=== PATIENT | female | born 1995 ===

== ENCOUNTER 2022-09-15 00:12 | Inpatient (IN) ==
[2022-09-15] MEDS ORDERED: OXYTOCIN 30 UNITS/500 ML BAG IV PRN ×2 (05:00→09:19)
[2022-09-15] MEDS ORDERED: LIDOCAINE 1% LOCAL 20 ML VIAL INFIL PRN (05:00)
[2022-09-15] MEDS: LACTATED RINGER'S 1,000 ML IV PRN ×2 (05:00→06:04)
[2022-09-15] MEDS ORDERED: fentaNYL 2MCG/ML ROPIVACAINE 1.25MG/ML 100 ML BAG EPI PRN (05:08)
[2022-09-15] MEDS ORDERED: NALBUPHINE HCL INJ 10 MG/ML AMP IV PRN (05:08)
[2022-09-15] MEDS ORDERED: NALOXONE HCL 0.4 MG/1 ML VIAL/CARP IV PRN (05:08)
[2022-09-15] MEDS ORDERED: NALOXONE HCL 1 MG in SODIUM CHLORIDE 0.9% 1000ML 1,000 ML IV PRN (05:08)
[2022-09-15] MEDS ORDERED: ONDANSETRON INJ 2 MG/ML 2 ML VIAL IV PRN (05:08)
[2022-09-15] MEDS ORDERED: diphenhydrAMINE 50 MG/ML VIAL IV PRN (05:08)
[2022-09-15] MEDS ORDERED: ePHEDrine sulfate 50 MG/ML AMP IV PRN (05:08)
[2022-09-15 05:30] LABS: Hematocrit (blood only) 37.4 % (37.0-47.0); Hemoglobin 12.8 g/dl (12.0-16.0); Mean Corpuscular Hemoglobin 31.8 pg (25.0-34.0); Mean Corpuscular Hgb Conc 34.2 g/dL (32.0-36.0); Mean Corpuscular Volume 92.8 fL (80.0-100.0); Mean Platelet Volume 12.1 fL (9.4-12.4); Platelet Count 153 K/uL (130-400); RDW Coefficient of Variation 14.5 % (11.5-14.5); RDW Standard Deviation 49.5 fL (36.4-46.3); Red Blood Count 4.03 M/uL (4.20-5.40); White Blood Count 7.75 K/ul (4.8-10.8)
[2022-09-15] MEDS ORDERED: Patient's ALLERGY Info needs ENTERED SCH (05:30)
--- NOTE | 2022-09-15 05:35 | History & Physical Report ---
Date of Service September 15, 2022 History of Present Illness Chief Complaint: onset of labor Primary Care Provider: NO PCP 26 F P1001 at 38.6 weeks admitted in early labor. GBS is negative. 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 History neg Review of Systems All systems reviewed & are unremarkable except as noted in HPI & below Physical Exam Constitutional: WD/WN, vitals as above Eyes: PERRL, conjunctivae normal, anicteric sclerae Respiratory: normal respiratory effort, lungs clear to auscultation Cardiovascular: RRR, no murmur, no edema Gastrointestinal (Abdomen): Inspection/Auscultation: abdomen normal to inspection Musculoskeletal: Extremities: extremities normal to inspection Skin: no rashes, warm and dry Neurologic: patellar DTR's 2+ bilat, sensation intact Psychiatric: A+Ox3, euthymic affect Genitourinary: Manual OB Exam: + cervical dilation 5 cm, + cervical effacement 70% and 80% and + station -1 OB Exam Monitor Tracing: + external FHT monitor used, + external uterine monitor used, + category I and + normal FHT variability Results & Data Vital Signs (Past 12 Hours) Vital Signs Temp Pulse Resp BP Pulse Ox 09/15/22 05:29 81 100 09/15/22 02:44 78 137/88 09/15/22 00:52 36.9 C 18 09/15/22 00:28 36.9 C 87 18 140/88 Laboratory Results Laboratory Results - last 72 hr 09/15/22 09/15/22 05:24 Unknown WBC 7.75 RBC 4.03 L Hgb 12.8 Hct 37.4 MCV 92.8 MCH 31.8 MCHC 34.2 RDW Std Deviation 49.5 H RDW Coeff of Claudette 14.5 Plt Count 153 MPV 12.1 SARS-CoV-2, RNA, NAAT NEGATIVE Code Status & VTE Plan VTE Prophylaxis Plan VTE Prophylaxis will be ordered: No Monitoring External Monitor Cat 1
--- NOTE | 2022-09-15 06:15 | Anesthesiology Consultation ---
Date of Service September 15, 2022 Assessment & Plan ASA ASA2 Proposed Anesthesia Anesthesia Type: Labor Epidural Risk / Benefits Reviewed With: PT / POA / Parent / Guardian, Accepts Plan and Informed Consent Obtained History Height/Weight Height: 5 ft 5 in Weight: 66.224 kg Allergies Allergy/AdvReac Type Severity Reaction Status Date / Time No Known Allergies Allergy Unverified 09/15/22 05:36 Medications Home Medications Medication Instructions Recorded Confirmed Last Taken Iron (ferrous sulfate) See Rx Instructions .Route .COMPLEX 09/15/22 09/15/22 1 Day Ago ~09/14/22 See Rx Instructions .Route .COMPLEX 09/15/22 09/15/22 1 Day Ago ~09/14/22 Active Medications Generic Name Dose Route Start Last Admin Trade Name Freq PRN Reason Stop Dose Admin Lactated Ringer's 1,000 mls @ 125 mls/hr 09/15/22 05:00 09/15/22 06:04 Lr IV 09/17/22 04:59 999 mls/hr .Q8H PRN Administration L&D Protocol Protocol Ropivacaine 100 ml 09/15/22 05:08 09/15/22 06:04 Fentanyl 2mcg/Ml Ropivacaine 1.25mg/Ml 100 Ml Bag EPI 09/16/22 05:07 100 ml PRN PRN Administration Pain R/T Labor Protocol Exercise / Class Metabolic Activity II 4-5 Yardwork/Stairs/Walk up hill Past Anesthesia History No Hx of Anesthesia Complications and No Family Hx of Anesthesia Complications History of PONV No Hx of PONV and No Hx of Motion Sickness Social History Smoking Status: Never smoker Do You Dip or Chew Tobacco: No Hx Alcohol Use: No Hx Substance Use: No substance use type: does not use Review of Systems denies fever/cough/ colds/ chest pain/ SOB/ HILARIO denies HILARIO Physical Exam Vital Signs Last Vital Signs Temp 36.9 C 09/15/22 00:52 Pulse 83 09/15/22 06:13 Resp 18 09/15/22 00:52 BP 124/69 09/15/22 06:13 Pulse Ox 94 09/15/22 06:11 ENMT Mouth: no TMJ abnormality and no dentition abnormality Thyromental Distance: > or= 3.5 Finger Breadths Mallampati Class: II Neck neck extension not limited Respiratory normal respiratory effort; no respiratory distress Auscultation: lungs clear to auscultation bilaterally Cardiovascular Rate/Rhythm: regular rate and regular rhythm Neurologic moves all extremities Psychiatric Orientation: alert and oriented x 3 Testing Laboratory Results 09/15/22 05:24
[2022-09-15] MEDS ORDERED: fentaNYL citrate PF 100 MCG/2 ML VIAL ONE ×2 (06:25→06:26)
--- NOTE | 2022-09-15 08:24 | Obstetrical Progress Note ---
Date of Service September 15, 2022 Assessment & Plan Admission and Anticipated Discharge Date Admission Date: September 15, 2022 Subjective Patient is seen and examined Reviewed her history with her. Comfortable received epidural for pain VE; 7/ 90%/ 0, bulging bag, AROM'ed, clear fluid FHR categ I Continue to monitor Anticipate Results & Data Vital Signs (Past 12 Hours) Vital Signs Temp Pulse Resp BP Pulse Ox 09/15/22 07:00 36.7 C 18 09/15/22 08:20 111 H 95 09/15/22 08:16 96 H 125/89 09/15/22 08:15 99 H 94 09/15/22 08:10 84 95 09/15/22 08:05 89 94 09/15/22 08:03 90 132/70 09/15/22 08:00 100 H 16 94 09/15/22 07:55 100 H 95 09/15/22 07:50 76 94 09/15/22 07:45 74 123/70 95 09/15/22 07:40 70 94 09/15/22 07:35 81 94 09/15/22 07:30 90 18 95 09/15/22 07:31 82 117/65 09/15/22 07:25 74 94 09/15/22 07:20 88 94 09/15/22 07:15 77 94 09/15/22 07:16 73 129/71 09/15/22 07:10 69 94 09/15/22 07:05 85 95 09/15/22 07:02 96 H 128/82 09/15/22 07:00 82 18 95 09/15/22 06:59 87 94 09/15/22 06:55 80 94 09/15/22 06:52 87 94 09/15/22 06:50 88 95 09/15/22 06:46 89 119/75 94 09/15/22 06:45 124 H 94 09/15/22 06:40 88 94 09/15/22 06:35 82 93 09/15/22 06:34 94 H 94 09/15/22 06:30 86 18 94 09/15/22 06:29 85 94 09/15/22 06:28 97 H 117/66 09/15/22 06:25 92 H 119/62 95 09/15/22 06:23 89 122/68 09/15/22 06:22 88 94 03/30/23 06:20 101 H 95 09/15/22 06:19 109 H 128/69 09/15/22 06:16 93 H 127/68 94 09/15/22 06:15 83 94 09/15/22 06:13 83 124/69 09/15/22 06:11 95 H 94 09/15/22 06:10 109 H 122/63 95 09/15/22 06:07 89 124/69 09/15/22 06:05 92 H 96 09/15/22 06:06 93 H 125/69 09/15/22 06:04 93 H 115/61 09/15/22 06:01 90 129/69 09/15/22 06:00 100 H 99 09/15/22 05:55 99 H 99 09/15/22 05:50 91 H 100 09/15/22 05:45 87 100 09/15/22 05:44 96 H 91 09/15/22 05:40 92 H 100 09/15/22 05:34 83 100 09/15/22 05:29 81 100 09/15/22 02:44 78 137/88 09/15/22 00:52 36.9 C 18 09/15/22 00:28 36.9 C 87 18 140/88
[2022-09-15] MEDS ORDERED: bisacodyL 10 MG SUPP PR PRN (09:19)
[2022-09-15] MEDS ORDERED: HYDROCORTISONE ACETATE 25 MG SUPP PR PRN (09:19)
[2022-09-15] MEDS ORDERED: ACETAMINOPHEN 325 MG TAB PO PRN (09:19)
[2022-09-15] MEDS ORDERED: DIPHTHERIA/TETANUS/PERTUSSIS 0.5mL SYR/VIAL (Age 7+yrs) IM ONE (09:19)
[2022-09-15] MEDS ORDERED: BENZOCAINE 20% AER SPR 82.5 GM CAN EXT PRN (09:19)
[2022-09-15] MEDS ORDERED: MEASLES, MUMPS & RUBELLA VIRUS VIAL SQ ONE (09:19)
--- NOTE | 2022-09-15 09:24 | Delivery Summary ---
Vaginal Delivery Summary Date of Service September 15, 2022 Vaginal Delivery Summary Patient was found to be fluid dilated and desired to push. She pushed through 3 contractions and delivered the head without focality. The shoulders were delivered with minimal traction and the baby was handed off to the mother. The mouth and nose were suctioned, cord was clamped times and cut at 1 minute delay. The baby is vigorously moving and crying at that point. Then the placenta was found to be in the vagina, delivered spontaneously as intact and complete. Uterus was explored and found to be empty, lower segment was cleared of all clots and debris's, fundus was firm and EBL was 100 mL. Then the vagina and perineum were checked for lacerations. There was a very superficial first-degree small laceration at posterior fourchette skin. It was repaired with 2-0 Vicryl with [id number] stitch x2. And it was hemostatic. Rest of the vagina and labia were intact. The mom and the baby tolerated the procedure well. Baby was a viable male , Apgars 8/9 and his weight is pending. No complications happened and I was present during whole procedure. At the end of the procedure the sponge needle instrument count was correct x2.
--- NOTE | 2022-09-15 13:03 | Anesthesia Procedure Note ---
Date of Service September 15, 2022 Anesthesia Epidural Re-Dose Vital Signs Temp Pulse Resp BP Pulse Ox 36.7 C 72 18 117/70 94 09/15/22 11:15 09/15/22 11:15 09/15/22 11:15 09/15/22 11:15 09/15/22 09:15 Notes Pain Intensity: 0 Dilatation (cm): 10.0 Effacement (%): 100
[2022-09-15] MEDS: IBUPROFEN 600 MG TAB PO PRN ×2 (16:26→22:02)
[2022-09-15] MEDS: DOCUSATE SODIUM 100 MG CAP PO SCH (21:30)
[2022-09-16 07:35] LABS: Hematocrit (blood only) 35.8 % (37.0-47.0); Hemoglobin 12.2 g/dl (12.0-16.0); Mean Corpuscular Hemoglobin 31.2 pg (25.0-34.0); Mean Corpuscular Hgb Conc 34.1 g/dL (32.0-36.0); Mean Corpuscular Volume 91.6 fL (80.0-100.0); Platelet Count 137 K/uL (130-400); RDW Coefficient of Variation 14.7 % (11.5-14.5); RDW Standard Deviation 50.1 fL (36.4-46.3); Red Blood Count 3.91 M/uL (4.20-5.40); White Blood Count 9.95 K/ul (4.8-10.8)
[2022-09-16] MEDS: IBUPROFEN 600 MG TAB PO PRN ×3 (08:34→20:54)
[2022-09-16] MEDS: FERROUS SULFATE 325 MG TAB PO SCH (08:34)
[2022-09-16] MEDS: PRENATAL VITAMIN 1 TAB PO SCH (08:35)
[2022-09-16] MEDS: DOCUSATE SODIUM 100 MG CAP PO SCH (08:36)
[2022-09-16] MEDS: DOCUSATE SODIUM SYRUP 100 MG/10 ML UDC PO SCH ×2 (09:21→20:55)
--- NOTE | 2022-09-16 10:26 | History & Physical Report ---
Date of Service September 16, 2022 Assessment & Plan Admission and Anticipated Discharge Date Admission Date: September 15, 2022 History of Present Illness Primary Care Provider: NO PCP Allergies Allergy/AdvReac Type Severity Reaction Status Date / Time Pork/Porcine Containing Allergy Unknown Verified 09/15/22 19:03 Products Home Medications Medication Instructions Recorded Confirmed Type Iron (ferrous sulfate) See Rx Instructions .Route .COMPLEX 09/15/22 09/15/22 History See Rx Instructions .Route .COMPLEX 09/15/22 09/15/22 History Patient History Social History Smoking Status: Never smoker Second Hand Exposure: No; Do You Dip or Chew Tobacco: No; Tobacco Cessation Education Requested by Patient: No Hx Alcohol Use: No Hx Substance Use: No Preferred Language: Other Communication Ability: Impaired Insurance Sales Manager Required: No Beliefs That Will Affect Care: None marital status: Current Living Situation: Spouse and Family Current Living Situation Comment: and son Other Information That Helps Us Care for You: No Feels Safe at Home: Yes Safety Concerns: Feels Safe At This Time Assistive Devices: None Results & Data Vital Signs (Past 12 Hours) Vital Signs Temp Pulse Pulse Resp BP Pulse Ox O2 Del Method 09/16/22 07:41 36.8 C 79 18 106/69 99 Room Air 09/15/22 23:25 36.7 C 73 18 112/72 97 Room Air Code Status & VTE Plan VTE Prophylaxis Plan VTE Prophylaxis will be ordered: No
--- NOTE | 2022-09-16 10:27 | Obstetrical Progress Note ---
Date of Service September 16, 2022 Subjective Ambulation: ambulating normally Voiding: no voiding problems Passing Gas:: Yes Diet Tolerance:: regular diet Lochia:: Small Feeding Type:: breast feeding Current Pain Level(1-10): 0 doing well Physical Exam Constitutional WD/WN, vitals as above Gastrointestinal (Abdomen) Inspection/Auscultation: abdomen normal to inspection Musculoskeletal Extremities: extremities normal to inspection Skin no rashes, warm and dry Neurologic patellar DTR's 2+ bilat, sensation intact Psychiatric A+Ox3, euthymic affect Results & Data Vital Signs (Past 12 Hours) Vital Signs Temp Pulse Pulse Resp BP Pulse Ox O2 Del Method 09/16/22 07:41 36.8 C 79 18 106/69 99 Room Air 09/15/22 23:25 36.7 C 73 18 112/72 97 Room Air Laboratory Results Laboratory Results - last 72 hr 09/15/22 09/15/22 09/16/22 05:24 Unknown 06:56 WBC 7.75 9.95 RBC 4.03 L 3.91 L Hgb 12.8 12.2 Hct 37.4 35.8 L MCV 92.8 91.6 MCH 31.8 31.2 MCHC 34.2 34.1 RDW Std Deviation 49.5 H 50.1 H RDW Coeff of Claudette 14.5 14.7 H Plt Count 153 137 MPV 12.1 12.0 SARS-CoV-2, RNA, NAAT NEGATIVE
[2022-09-16] MEDS ORDERED: bisacodyL 5 MG TABEC PO SCH (20:00)
[2022-09-17] MEDS: IBUPROFEN 600 MG TAB PO PRN (06:30)
[2022-09-17 06:53] LABS: Hematocrit (blood only) 35.9 % (37.0-47.0); Hemoglobin 12.3 g/dl (12.0-16.0)
[2022-09-17] MEDS: FERROUS SULFATE 325 MG TAB PO SCH (08:32)
[2022-09-17] MEDS: DOCUSATE SODIUM SYRUP 100 MG/10 ML UDC PO SCH (08:32)
[2022-09-17] MEDS: PRENATAL VITAMIN 1 TAB PO SCH (08:32)
--- NOTE | 2022-09-17 08:33 | Obstetrical Progress Note ---
Date of Service September 17, 2022 Assessment & Plan Admission and Anticipated Discharge Date Admission Date: September 15, 2022 Subjective Patient is seen and examined. She feels well, no complaints. Ambulating without dizziness Voiding without difficulty Tolerating regular diet with out N&V Bleeding is minimal No fever/ chills/ CP/ SOB/ N&V/ Leg pain Breast feeding without problems Vital Signs Temp Pulse Resp BP Pulse Ox O2 Del Method 09/16/22 23:25 Room Air 09/16/22 23:25 36.6 C 76 18 120/74 97 Room Air Lab Results 09/15/22 09/15/22 09/16/22 Range/Units 05:24 Unknown 06:56 WBC 7.75 9.95 (4.8-10.8) K/ul RBC 4.03 L 3.91 L (4.20-5.40) M/uL Hgb 12.8 12.2 (12.0-16.0) g/dl Hct 37.4 35.8 L (37.0-47.0) % MCV 92.8 91.6 (80.0-100.0) fL MCH 31.8 31.2 (25.0-34.0) pg MCHC 34.2 34.1 (32.0-36.0) g/dL RDW Std Deviation 49.5 H 50.1 H (36.4-46.3) fL RDW Coeff of Claudette 14.5 14.7 H (11.5-14.5) % Plt Count 153 137 (130-400) K/uL MPV 12.1 12.0 (9.4-12.4) fL SARS-CoV-2, RNA, NAAT NEGATIVE (NEGATIVE) 09/17/22 Range/Units 06:25 WBC (4.8-10.8) K/ul RBC (4.20-5.40) M/uL Hgb 12.3 (12.0-16.0) g/dl Hct 35.9 L (37.0-47.0) % MCV (80.0-100.0) fL MCH (25.0-34.0) pg MCHC (32.0-36.0) g/dL RDW Std Deviation (36.4-46.3) fL RDW Coeff of Claudette (11.5-14.5) % Plt Count (130-400) K/uL MPV (9.4-12.4) fL SARS-CoV-2, RNA, NAAT (NEGATIVE) PE: General: Alert, orientedx3, NAD Abd: soft, NT, fundus firm, below Umbilicus Perineum intact, Lochia rubra minimal Ext; NT, no edema AP: 26 yo s/p , ppd# 2 VSS Afebrile doing well Continue routine care All questions were answered Discussed when to call. D/C home , f/u in office Results & Data Vital Signs (Past 12 Hours) Vital Signs Temp Pulse Resp BP Pulse Ox O2 Del Method 09/16/22 23:25 Room Air 09/16/22 23:25 36.6 C 76 18 120/74 97 Room Air
== END 2022-09-17 12:50 | disposition home or self-care (01) | DRG 807 ==
LOC: OPB 00:12 → 4S1 00:14 → 4E2 13:24